=== PATIENT | male | born 1955 | race Caucasian/White ===

== ENCOUNTER 2016-10-18 12:01 | Outpatient (CLI) | payer MEDICAID ==
[~2016-10-18] VITALS: Ht 177.8 cm; Wt 93.6 kg
--- NOTE | ~2016-10-18 | HEMODYNAMI ---
PATIENT:KELSI PARHAM MEDICAL RECORD: [id number] : 53 LOCATION:D.CAT ADMISSION DATE: 10/18/16 Generatedon:10/18/201614:50 Patient name: KELSI PARHAM Patient #: [id number] SSN: : 1955 Date of study: 10/18/2016 Page: Of Hemodynamic Procedure Report Patient Data Patient Demographics Procedure consent was obtained First Name: KELSI Gender: Male Last Name: PRASAD : 1955 Middle Initial: PRINCE Age: 61 year(s) Patient #: [id number] Race: Additional ID: [id number] Contact details Address: [address] [place] [address] TRAIL State: [place] City: [facility] Zip code: [address] Past Medical History Allergies: No known allergies Admission Admission Data Admission Date: 10/18/2016 Admission Time: 12:01 Procedure Procedure Types Cath Procedure Miscellaneous Procedures Moderate Sedation up to 15 minutes Peripheral Cath Diagnostic Procedure Cath Peripheral Pcsda-Sawmkeq-Pac-Off Procedure Description Procedure Date Procedure Date: 10/18/2016 Procedure Start Time: 14:32 Procedure End Time: 14:49 Procedure Staff Name Function Walker Perla MD Performing Physician Susan Olivo RT Scrub Ji Caban RN Nurse Gloria Thomas RT Monitor Procedure Data Cath Procedure Fluoroscopy Diagnostic fluoroscopy Total fluoroscopy Time: 1.7 time: 1.7 min min Diagnostic fluoroscopy Total fluoroscopy dose: 271 dose: 271 mGy mGy Contrast Material Contrast Material Type Amount (ml) Isovue 300 103 Entry Location Entry Primary Successful Side Size Upsize Upsize Entry Closure Succes sful Closure Location (Fr) 1 (Fr) 2 (Fr) Remarks Device Remarks Femoral Right 5 Fr Exoseal artery Estimated blood loss: 5 ml Diagnostic catheters Device Type Used For End Catheter Placement Cordis Tempo 5Fr UF Abdominal catheter aortogram with runoff Procedure Medications Medication Administration Route Dosage Oxygen NC 2 l/min Heparin Flush Bag added to field 2 bags (1000units/500ml NS) 0.9% NaCl I.V. 100 ml/hr Fentanyl I.V. 50 mcg Versed I.V. 1 mg Fentanyl I.V. 50 mcg Versed I.V. 1 mg Fentanyl I.V. 50 mcg Versed I.V. 1 mg Fentanyl I.V. 50 mcg Versed I.V. 1 mg Hemodynamics Rest Heart Rate: 56 (bpm) Snapshots Pre Cath Intra NCS Post Cath Vital Signs Time Heart Resp SPO2 NIBP (mmHg) Rhythm Pain Sedation Rate (ipm) (%) Status Level (bpm) 14:23:46 55 18 96 148/71(117) NSR 0 (11) 10(A) , No pain 14:28:09 58 18 98 129/69(105) NSR 0 (11) 10(A) , No pain 14:32:25 57 17 96 117/64(90) NSR 0 (11) 9(A) , No pain 14:36:30 56 19 98 115/65(91) NSR 0 (11) 9(A) , No pain 14:40:40 60 19 98 121/63(96) NSR 0 (11) 9(A) , No pain 14:46:02 61 16 98 132/68(106) NSR 0 (11) 10(A) , No pain Medications Time Medication Route Dose Verified Delivered Reason Notes Effec tiveness by by 14:25:26 Oxygen NC 2 Ji Ji Per l/min Arsh Caban RN physician RN 14:25:35 Heparin Flush added 2 Ji Ji used for Bag to bags Arsh Caban RN procedure (1000units/500ml field RN NS) 14:25:44 0.9% NaCl I.V. 100 Ji Ji Per ml/hr Arsh Caban RN physician RN 14:26:37 Fentanyl I.V. 50 Ji Ji for [facility] Arsh Caban RN sedation RN 14:26:43 Versed I.V. 1 mg Ji Ji for Arsh Caban RN sedation RN 14:28:26 Fentanyl I.V. 50 Ji Ji for milagro Caban RN sedation RN 14:28:30 Versed I.V. 1 mg Ji Ji for Arsh Caban RN sedation RN 14:30:28 Fentanyl I.V. 50 Ji Ji for milagro Caban RN sedation RN 14:30:32 Versed I.V. 1 mg Ji Workman for Arsh Caban RN sedation RN 14:34:53 Fentanyl I.V. 50 Ji [facility] for [facility] Arsh Caban RN sedation RN 14:34:56 Versed I.V. 1 mg Ji Workman for Arsh Caban RN sedation cis coordinator Log Time Note 14:00:24 Ji Caban RN sent for patient. Start room use. 14:06:25 Time tracking: Regular hours 14:06:29 Plan of Care:Hemodynamics will remain stable., Cardiac rhythm will remain stable., Comfort level will be maintained., Respiratory function will remain adequate., Patient/ family verbilizes understanding of procedure., Procedure tolerated without complication., Recovers from procedure without complications.. 14:13:05 Patient received from Pre/Post Procedure Room to CCL 2 Alert and oriented. Tansferred to table in Supine position. 14:13:27 Warm blankets applied, and fito hugger turned on for patient comfort. 14:13:28 Correct patient and procedure confirmed by team. 14:13:29 Signed procedure consent form obtained from patient. 14:13:29 ECG and BP/O2 sat monitors applied to patient. 14:13:31 Full Disclosure recording started 14:22:28 Vital chart was started 14:22:34 Rhythm: sinus bradycardia 14:22:45 H&P Date Dictated: 10/18/2016 New H&P dictated by physician.. 14:22:46 Pre-procedure instructions explained to patient. 14:22:47 Pre-op teaching completed and patient verbalized understanding. 14:22:48 Family in waiting room. 14:22:49 Patient NPO since Midnight. 14:22:55 Patient allergic to No known allergies 14:22:57 Is the patient allergic to Iodine/contrast media? No. 14:23:04 Was the patient premedicated? No 14:23:05 Is patient on blood thinner?No 14:23:08 Patient diabetic? No. 14:23:19 Previous problem with sedation/anesthesia? No ? 14:23:21 Snore? Yes 14:23:22 Sleep apnea? No 14:23:23 Deviated septum? No 14:23:23 Opens mouth fully? Yes 14:23:29 Sticks out tongue? Yes 14:23:31 Airway obstruction? No ? 14:23:33 Dentures? No ? 14:23:41 Pre procedure: right dorsailis pedis pulse 2+ Normal; easily identifiable; not easily obliterated 14:23:49 Pre procedure: left dorsailis pedis pulse 1+ Palpable, but thready & weak; easily obliterated 14:23:58 Patient pain scale 0/10 ?. 14:24:06 IV patent on arrival in left hand with 0.9% NaCl at [facility]. 14:24:13 Lab results completed and on chart. 14:24:18 Right Radial & Right Groin area was prepped with chlora-prep and draped in sterile fashion 14:24:19 Alarms reviewed by R. N. 14:24:19 Sharps counted by scrub and verified by R.N. 14:25:26 Oxygen 2 l/min NC was administered by Ji Caban RN; Per physician; 14:25:35 Heparin Flush Bag (1000units/500ml NS) 2 bags added to field was administered by Ji Caban RN; used for procedure; 14::44 0.9% NaCl 100 ml/hr I.V. was administered by Ji Caban RN; Per physician; 14:26:16 Final Timeout: patient, procedure, and site verified with staff and physician. All members of the team are in agreement. 14:26:18 Right groin site verified by team. 14:26:21 Physical assessment completed. ASA score P 2 - A patient with mild systemic disease as per Walker Perla MD. 14::23 Sedation plan: IV Moderate Sedation Versed, Fentanyl 14:26:29 Acist Syringe opened to sterile field. 14:26:30 Bag Decanter opened to sterile field. 14:26:30 Medline Cath Pack opened to sterile field. 14:26:31 Terumo 5Fr [place] Sheath opened to sterile field. 14:26:32 St Jalen 260cm J .035 wire opened to sterile field. 14:26:33 Acist Hand Control opened to sterile field. 14:26:33 Acist Manifold opened to sterile field. 14:26:36 Tegaderm 4 x 4 opened to sterile field. 14:26:37 Fentanyl 50 mcg I.V. was administered by Ji Caban RN; for sedation; 14::43 Versed 1 mg I.V. was administered by Ji Caban RN; for sedation; 14:28:26 Fentanyl 50 mcg I.V. was administered by Ji Caban RN; for sedation; 14:28:30 Versed 1 mg I.V. was administered by Ji Caban RN; for sedation; 14:30:28 Fentanyl 50 mcg I.V. was administered by Ji Caban RN; for sedation; 14:30:32 Versed 1 mg I.V. was administered by Ji Caban RN; for sedation; 14:31:49 Zero performed for pressure channel P1 14:31:59 Baseline sample Acquired. 14:32:03 Procedure started. 14:32:08 Local anesthetic to right femoral artery with Lidocaine 2% by Walker Perla MD.INITIAL ACCESS ONLY 14:33:51 A 5 Fr sheath was inserted into the Right Femoral artery 14:34:24 A Cordis Tempo 5Fr UF catheter was advanced over the wire and used for Abdominal aortogram with runoff. 14:34:53 Fentanyl 50 mcg I.V. was administered by Ji Caban RN; for sedation; 14:34:56 Versed 1 mg I.V. was administered by Ji Caban RN; for sedation; 14:40:56 Catheter removed. 14:41:04 Cordis 5Fr Exoseal opened to sterile field. 14:41:19 Sheath removed intact; hemostasis achieved with Exoseal to the Right Femoral artery. 14:41:44 Procedure ended.(Physican Out) 14:41:58 Fluoroscopy time 01.70 minutes. 14:42:03 Fluoroscopy dose: 271 mGy 14:42:03 Flurop Dose total: 271 14:43:29 Contrast amount:Isovue 300 103ml. 14:43:30 Sharps counted by scrub and verified by R.N. 14:43:31 Insertion/operative site no bleeding no hematoma. 14:43:38 Post-op/insertion site Right Femoral artery dressed using a 4 x 4 and Tegaderm. 14:43:42 Post right femoral artery:stable, clean and dry 14:43:43 Post Procedure Pulses reassessed and unchanged 14:43:48 Post-procedure physical assessment completed. ASA score P 2 - A patient with mild systemic disease as per Walker Perla MD. 14:43:50 Post procedure rhythm: unchanged. 14:43:54 Estimated blood loss: 5 ml 14:43:56 Post procedure instruction explained to patient.Patient verbalizes understanding. 14:43:57 Patient needs reinforcement of post procedure teaching. 14:44:12 Procedure type changed to Cath procedure, Miscellaneous Procedures, Moderate Sedation up to 15 minutes, Peripheral Cath Diagnostic Procedure, Cath Peripheral, Qgpgh-Yeeyoqb-Nwp-Off 14:44:17 See physician's report for complete and final results. 14:49:24 Procedure and supply charges have been captured, reviewed, submitted and are correct. 14:49:27 Vital chart was stopped 14:49:29 Report given to Pre/Post Procedure Room. 14:49:34 Patient transfered to Pre/Post Procedure Room with Stretcher. 14:49:41 Procedure ended. 14:49:41 Full Disclosure recording stopped 14:49:44 End room use (Document Last) Device Usage Item Manufacture Quantity Catalog Hospital Part Current Minimal Lot# / Name Number Charge Number Stock Stock Seri al# Code Acist Acist 1 [id number] [id number] [id number] [id number] 20 Syringe [employer] Bag Microtek 1 2002S 440312 03270 [id number] 5 Decan[employer] Medline Cardinal 1 [id number] 05500 102336 5 Cath Health Pack Terumo Terumo 1 [id number] 015363 815740 [address] Jalen 1 475512 735650 493761 995358 30 260cm J .035 wire Acist Acist 1 56707 163775 049673 286826 5 Hand [employer] Inc Acist Acist 1 20823 839008 422996 236558 5 Manifold [employer] Inc Tegaderm 3M 1 [id number] 125387 240641 160097 5 4 x 4 Cordis Cardinal 1 [id number] 716620 592652 721789 10 Tempo Health 5Fr UF catheter Cordis Cardinal 1 EX500 405411 760073 040943 10 5Fr Health Exoseal Signature Audit [place] Stage Time Signature Unsigned Intra-Procedure 10/18/2016 Gloria 2:50:23 PM Counts RT(R) Signatures Monitor : Gloria Signature : Counts RT Date : Time : [facility] [address] [place] [address]
[~2016-10-18 12:01] MED LIST: BAYER CHEWABLE81 MG PO; COREG 3.1253.125 MG PO; EFFIENT10 MG PO; FLAGYL500 MG PO; GABAPENTIN100 MG PO; LISINOPRIL10 MG PO; MELATONIN 3 MG1 TAB PO; PREVACID30 MG PO; ZOCOR20 MG PO
[2016-10-18] MEDS ORDERED: RESTORIL7.5 MG PO (12:20)
[2016-10-18] MEDS ORDERED: ZANAFLEX4 MG PO (12:21)
[2016-10-18] MEDS ORDERED: HYDROCODONE-APA1 TAB PO (12:22)
[2016-10-18 12:30] VITALS: BP 167/71; Ht 177.8 cm; Wt 93.6 kg
[2016-10-18 12:46] LABS: ANION GAP 12.9 mmol/L (8-16); CALCIUM 8.5 mg/dL (8.5-10.1); CARBON DIOXIDE 25.7 mmol/L (21.0-32.0); CREATININE - SERUM 1.1 mg/dL (0.6-1.3); POTASSIUM - SERUM 4.6 mmol/L (3.5-5.1)
[2016-10-18 12:48] LABS: BASOPHILS 0.2 % (0-2); EOSINOPHILS 1.2 % (0-7); HEMOGLOBIN 17.4 g/dL (13.5-17.5); IMMATURE GRANULOCYTES 0.2 % (0-5); LYMPHOCYTES 29.6 % (15-50); MCH 32.3 pg (26.0-34.0); MCHC 33.5 g/dL (31.0-37.0); MCV 96.5 fL (80.0-100.0); MEAN PLATELET VOLUME 10.2 fL (7.4-10.4); NEUTROPHILS 57.8 % (40-80); PLATELET COUNT 187 10x3/uL (130-400); RBC 5.39 10x6/uL (4.20-6.10); WBC 12.1 10x3/uL (4.8-10.8)
--- NOTE | 2016-10-18 15:15 | NUR ---
RESTING, RIGHT GROIN CDI, NO HEMATOMA OR BLEEDING AT SITE, SOFT TO TOUCH
--- NOTE | 2016-10-18 15:45 | NUR ---
2L NC, NO RESP DISTRESS NOTED. RIGHT GROIN 6F EXOSEAL CDI, NO BLEEDING OR HEMATOMA NOTED. VSS. NO C/O AT THIS TIME. WILL CONTINUE TO MONITOR.
--- NOTE | 2016-10-18 17:02 | NUR ---
HOB ELEVATED 30 DEGREES, RIGHT GROIN 6F EXOSEAL CDI, NO BLEEDING OR HEMATOMA NOTED.
--- NOTE | 2016-10-18 17:21 | NUR ---
LEFT HAND PIV D/C'D WITH CATHTETER INTACT, BAND AID TO SITE. UP TO BEDSIDE TO GET DRESSED.
--- NOTE | 2016-10-18 17:35 | NUR ---
DISCHARGE INSTRUCTIONS GIVEN, VERBALIZED UNDERSTANDING.
--- NOTE | 2016-10-18 17:40 | NUR ---
TAKEN OUT VIA WHEELCHAIR BY CATH SIDE LASTER STAPLE. LEFT FACILITY WITH FAMILY MEMBER AND ALL PERSONAL BELONGINGS.
== END 2016-10-18 17:40 | disposition home or self-care (01) ==
LOC: D.CATH 12:01
PROVIDERS: Internal Medicine Cardiovascular Disease
DX: I70.212 Atherosclerosis of native arteries of extremities with intermittent claudication, left leg (principal); F17.200 Nicotine dependence, unspecified, uncomplicated; I25.10 Atherosclerotic heart disease of native coronary artery without angina pectoris; Z95.5 Presence of coronary angioplasty implant and graft; I10 Essential (primary) hypertension; K21.9 Gastro-esophageal reflux disease without esophagitis; Z79.82 Long term (current) use of aspirin; Z79.02 Long term (current) use of antithrombotics/antiplatelets; Z01.812 Encounter for preprocedural laboratory examination

== ENCOUNTER → 2017-02-07 17:08 | Outpatient (CLI) | payer MEDICAID ==
[2016-10-18 12:30] VITALS: BMI 29.6
[~2017-02-07 17:08] MED LIST changes: +HYDROCODONE-APA1 TAB PO; +RESTORIL7.5 MG PO; +ZANAFLEX4 MG PO
== END | disposition home or self-care (01) ==
LOC: D.LABREF 17:08
DX: R31.9 Hematuria, unspecified (principal)

== ENCOUNTER → 2019-04-09 13:43 | Outpatient (CLI) | payer OTHER ==
[2016-10-18 12:30] VITALS: BMI 29.6
== END | disposition home or self-care (01) ==
LOC: D.LABREF 13:43
PROVIDERS: ATTEND Urology
DX: R31.9 Hematuria, unspecified (principal)

== ENCOUNTER 2019-05-22 09:38 | Day surgery (SDC) | payer OTHER ==
[~2019-05-22] VITALS: Ht 177.8 cm; Wt 88.9 kg
[~2019-05-22 09:38] MED LIST changes: +AMBIEN5 MG PO; +COZAAR100 MG PO; +CRESTOR20 MG PO; +CYCLOBENZAPRINE10 MG PO; +FLOMAX0.4 MG PO; +NITROQUICK0.4 MG SL; +NORVASC10 MG PO; +XARELTO10 MG PO
[2019-05-22 10:08] LABS: HEMATOCRIT 45.8 % (42.0-54.0); HEMOGLOBIN 15.7 g/dL (13.5-17.5); MCH 31.7 pg (26.0-34.0); MCHC 34.3 g/dL (31.0-37.0); MCV 92.5 fL (80.0-100.0); MEAN PLATELET VOLUME 9.4 fL (7.4-10.4); RBC 4.95 10x6/uL (4.20-6.10); WBC 11.2 10x3/uL (4.8-10.8)
[2019-05-22 10:57] VITALS: BP 145/74; Ht 177.8 cm; Wt 88.9 kg
--- NOTE | 2019-05-22 16:54 | OP ---
PATIENT NAME: ANTHONY PARHAM MEDICAL RECORD: [id number] :53 LOCATION:D.OPS ADMISSION DATE: SURGEON: ANTHONY MCGUIRE MD DATE OF OPERATION: 05/22/2019 SURGEON: Anthony Mcguire MD ANESTHESIA: TIVA by Laura Temple CRNA. DIAGNOSIS: Retained right ureteral stent. PROCEDURE: Cystoscopy and right ureteral stent removal. FINDINGS: Open prostatic urethra. SPECIMENS: Right ureteral stent. ESTIMATED BLOOD LOSS: None. CLINICAL HISTORY: This is a 63-year-old male, who recently had the UroLift procedure done as well as resection of a bladder tumor. The tumor was located around the right ureteral orifice and a right ureteral stent was placed to protect the ureteral orifice. There is no string on the stent and the stent now needs to be removed. The pathology on the bladder tumor was inflammatory and not malignant. He was given ampicillin and sulbactam pmo consultant to the OR. DESCRIPTION OF PROCEDURE: The patient was given IV sedation. He was placed into lithotomy position and prepped and draped. The rigid scope with the rigid grasper was used and the stent was seen and removed entirely. The patient will be seen in followup in 1 month's time to check on his voiding symptoms from the UroLift procedure. TRANSINT:[id number] Voice Confirmation ID: [id number] DOCUMENT ID: [id number] ANTHONY MCGUIRE MD at 1654 CC: [id number] DICTATION DATE: 05/22/19 1242 JOINT SPECIAL OPERATIONS: 05/22/19 1642 [facility] 05/22/[address] [id number]
== END 2019-05-22 13:50 | disposition home or self-care (01) ==
LOC: D.OPS 09:38 → D.PAN 12:00 → D.OPS 12:00 → D.PAN 13:45 → D.OPS 13:50
PROVIDERS: Anesthesiology; ATTEND Urology
DX: Z18.89 Other specified retained foreign body fragments (principal); N40.1 Benign prostatic hyperplasia with lower urinary tract symptoms